=== PATIENT | female | born 1955 | race Caucasian/White ===

== ENCOUNTER → 2016-02-28 | Outpatient (CLI) | payer BC ==
[~2016-02-28] MED LIST: ASPIRIN E.C. 8181 MG PO; AYR SALINE MIST50 ML NS; CARDIZEM CD 24240 MG PO; MIRALAX PA17 GM/Dose PO; NASONEX SPRAY17 GM NS; NORCO 325 MG-51 TAB PO; SYNTHROID0.112 MG/T PO; TOPROL XL 25MG25 MG PO; VITAMIN D31000 I1 PO; ZANTAC 150MG T150 MG PO; ZOCOR 10MG10 MG PO
== END ==
LOC: MC.RAD 02-14 14:40
DX: Z12.31 Encounter for screening mammogram for malignant neoplasm of breast (principal)

== ENCOUNTER → 2018-06-07 | Outpatient (CLI) | payer MEDICARE, OTHER | LOC: MC.RAD 09:30 | DX: Z12.31 Encounter for screening mammogram for malignant neoplasm of breast (principal) ==

== ENCOUNTER → 2019-10-20 | Outpatient (CLI) | payer MEDICARE, OTHER | LOC: MC.RAD 11:40 | DX: Z12.31 Encounter for screening mammogram for malignant neoplasm of breast (principal) ==

== ENCOUNTER → 2021-01-08 | Outpatient (CLI) | payer MEDICARE, OTHER | LOC: MC.RAD 15:45 | DX: Z12.31 Encounter for screening mammogram for malignant neoplasm of breast (principal) ==

== ENCOUNTER 2022-11-10 15:42 | Outpatient (RCR) | payer MEDICARE, OTHER | END 2022-11-12 15:58 | disposition home or self-care (01) | LOC: COL.CR 15:42 | DX: Z48.812 Encounter for surgical aftercare following surgery on the circulatory system (principal); Z95.2 Presence of prosthetic heart valve ==

== ENCOUNTER → 2023-03-17 | Outpatient (CLI) | payer MEDICARE, OTHER | LOC: MC.RAD 11:10 | DX: Z12.31 Encounter for screening mammogram for malignant neoplasm of breast (principal) ==

== ENCOUNTER → 2023-11-17 | Outpatient (CLI) | payer MEDICARE, OTHER | LOC: COL.RAD 12:54 | DX: M47.812 Spondylosis without myelopathy or radiculopathy, cervical region (principal); M50.20 Other cervical disc displacement, unspecified cervical region; M47.816 Spondylosis without myelopathy or radiculopathy, lumbar region; M43.6 Torticollis; M46.1 Sacroiliitis, not elsewhere classified; M41.86 Other forms of scoliosis, lumbar region ==